=== PATIENT | female | born 1940 | race Caucasian/White ===

== ENCOUNTER 2021-09-01 10:57 | Observation (INO) | payer MEDICARE ==
[2021-09-01] MEDS ORDERED: Sodium Chloride 0.9% 1000 ML 1,000 ML IV STA ×2 (11:06→12:25)
[2021-09-01] MEDS ORDERED: Hydromorphone 1 mg/ml Injection IV ONE (11:10)
[2021-09-01] MEDS ORDERED: Zofran 4 MG/2 ML VIAL IV ONE (11:10)
[2021-09-01] MEDS ORDERED: Hydromorphone 1 mg/ml Injection ONE (11:12)
[2021-09-01] MEDS ORDERED: Zofran 4 MG/2 ML VIAL ONE (11:12)
[2021-09-01] MEDS ORDERED: Sodium Chloride 0.9% 1000 ML 1,000 ML ONE ×2 (11:12→12:29)
--- NOTE | 2021-09-01 11:21 | ERPHSYRPT ---
- History of Present Illness Time Seen by Provider: 09/01/21 11:17 Historian: patient Exam Limitations: no limitations Patient Subjective Stated Complaint: Abdominal pain Triage Nursing Assessment: Patient ambulated back to ED and transferred self to bed. Patient A+ O X3. Patient's skin pink, warm and dry. patient complains of intermittent abdominal pain 6/10 for the past two weeks. Patient also complains of diarrhea and nausea, but denies vomiting. Abdomen soft and round with BS X 4. Physician History: Patient is 81-year-old female came to the emergency room with complaining of abdominal pain for last 1 to 2 weeks associated with nausea vomiting and diarrhea. She was also running some low-grade fever with chills couple days ago. She denies any blood in her stool or urine. Patient has been feeling weak since last 2 weeks afterwards she started having a diarrhea. She is still able to eat. Patient was feeling better little bit yesterday but today again she started having more and more diarrhea. Timing/Duration: week(s) (1-2 weeks) Activities at Onset: none Quality: cramping Abdominal Pain Onset Location: generalized abdomen Pain Radiation: no radiation Severity of Pain-Max: moderate Severity of Pain-Current: moderate Modifying Factors: Improves With: nothing Associated Symptoms: diarrhea, fever/chills, loss of appetite, nausea, vomiting Previous symptoms: no prior history Allergies/Adverse Reactions: adhesive Allergy (Verified 09/01/21 11:06) azithromycin [From Zithromax Z-Michael] Allergy (Verified 09/01/21 11:06) cephalexin monohydrate [From Keflex] Allergy (Verified 09/01/21 11:06) codeine Allergy (Verified 09/01/21 11:06) peanut Allergy (Verified 09/01/21 11:06) Penicillins Allergy (Verified 09/01/21 11:06) rifampin Allergy (Verified 09/01/21 11:06) Sulfa (Sulfonamide Antibiotics) Allergy (Verified 09/01/21 11:06) tizanidine HCl [From Zanaflex] Allergy (Verified 09/01/21 11:06) Home Medications: Lovastatin 20 mg PO HS 12/06/13 [History] Metoprolol Tartrate 50 mg [Lopressor 50 MG] 100 mg PO BID 12/06/13 [History] Primidone 100 mg PO DAILY 10/21/14 [History] Dicyclomine HCl 20 mg [Bentyl 20 mg] 20 mg PO UD PRN 10/29/14 [History] Isosorbide Mononitrate 30 mg [Imdur 30 MG] 60 mg PO DAILY 05/12/16 [History] Aspirin EC 81 mg [Ecotrin 81 mg] 81 mg PO DAILY 09/01/21 [History] Dulaglutide [Trulicity] 0.75 mg SQ WEEKLY 09/01/21 [History] Glipizide 10 mg [Glucotrol 10 MG] 10 mg PO DAILY 09/01/21 [History] Olmesartan/Hydrochlorothiazide [Benicar Hct 40-25 mg Tablet] 1 tab PO DAILY 09/01/21 [History] Sitagliptin Phosphate 50 MG [Januvia 50 MG] 100 mg PO DAILY 09/01/21 [History] Hx Tetanus, Diphtheria Vaccination/Date Given: No Hx Influenza Vaccination/Date Given: Yes Hx Pneumococcal Vaccination/Date Given: Yes Immunizations Up to Date: Yes Travel Risk - International Travel Have you traveled outside of the country in past 3 weeks: No - Coronavirus Screening Are you exhibiting any of the following symptoms?: No Close contact with a COVID-19 positive Pt in past 14-21 Days: No - Vaccine Status Have you recieved a Covid-19 vaccination: Yes Continuous [employer]: [place] - Vaccination Dates Date of 2cond Vaccination (if applicable): Jul 2020 Comment: Booster Feb 2022 - Review of Systems Constitutional: No Fever, No Chills Eyes: No Symptoms Ears, Nose, & Throat: No Symptoms Respiratory: No Cough, No Dyspnea Cardiac: No Chest Pain, No Edema, No Syncope Abdominal/Gastrointestinal: Abdominal Pain, No Nausea, No Vomiting, No Diarrhea Genitourinary Symptoms: No Dysuria Musculoskeletal: No Back Pain, No Neck Pain Skin: No Rash Neurological: No Dizziness, No Focal Weakness, No Sensory Changes Psychological: No Symptoms Endocrine: No Symptoms All Other Systems: Reviewed and Negative - Past Medical History Pertinent Past Medical History: Yes Neurological History: No Pertinent History ENT History: Cataracts Cardiac History: Hypertension, Other Respiratory History: Asthma Endocrine Medical History: Adrenal Insufficiency, Diabetes Type II Musculoskeletal History: Osteoarthritis GI Medical History: Diverticulosis, Irritable Bowel History: No Pertinent History Psycho-Social History: Anxiety Female Reproductive Disorders: No Pertinent History Other Medical History: STINTS, PAST BACK INJURY WITH NON SUCCESSFUL BACK SURGERY, CRONIC SCIATICA - Past Surgical History Past Surgical History: Yes Neuro Surgical History: No Pertinent History Cardiac: No Pertinent History Respiratory: No Pertinent History Gastrointestinal: Appendectomy, Cholecystectomy Genitourinary: No Pertinent History Musculoskeletal: Orthopedic Surgery Female Surgical History: Section, Hysterectomy, Lumpectomy Other Surgical History: back surgery - Social History Smoking Status: Never smoker Exposure to second hand smoke: No (as a child/ not now) Drug Use: none Patient Lives Alone: Yes - Nursing Vital Signs Nursing Vital Signs: Initial Vital Signs Temperature 96.5 F 09/01/21 11:07 Pulse Rate 78 09/01/21 11:07 Respiratory Rate 18 09/01/21 11:07 Blood Pressure 184/77 09/01/21 11:07 O2 Sat by Pulse Oximetry 97 09/01/21 11:07 Pain Scale Pain Intensity 3 - Physical Exam General Appearance: no apparent distress, alert Eye Exam: PERRL/EOMI, eyes nml inspection Ears, Nose, Throat Exam: normal ENT inspection, pharynx normal, moist mucous membranes Neck Exam: normal inspection, non-tender, supple, full range of motion Respiratory Exam: normal breath sounds, lungs clear, No respiratory distress Cardiovascular Exam: regular rate/rhythm, normal heart sounds Gastrointestinal/Abdomen Exam: soft, No tenderness, No mass Back Exam: normal inspection, normal range of motion, No CVA tenderness, No vertebral tenderness Extremity Exam: normal inspection, normal range of motion, pelvis stable Neurologic Exam: alert, oriented x 3, cooperative, normal mood/affect, nml cerebellar function, sensation nml, No motor deficits Skin Exam: normal color, warm, dry SpO2: 97 - Course Nursing assessment & vital signs reviewed: Yes - CT Exams Abdomen/Pelvis CT Interpretation: Tele-radiologist Report (no abnormality) Ordered Tests: Active Orders 24 hr Category Date Time Status EKG-ER Only STAT Care 09/01/21 11:06 Active IV Insertion STAT Care 09/01/21 11:06 Active ABDOMEN AND PELVIS W/0 CONTRAS [CT] Stat Exams 09/01/21 12:16 Taken AMYLASE Stat Lab 09/01/21 11:35 Completed CBC W DIFF Stat Lab 09/01/21 11:35 Completed CMP Stat Lab 09/01/21 11:35 Completed CULTURE,URINE Stat Lab 09/01/21 11:15 Received LIPASE Stat Lab 09/01/21 11:35 Completed Transfer Order Routine Transfer 09/01/21 Ordered Medication Summary Discontinued Medications Generic Name Dose Route Start Last Admin Trade Name Charito PRN Reason Stop Dose Admin Hydromorphone HCl 0.5 mg 09/01/21 11:10 09/01/21 11:28 Hydromorphone 1 Mg/1ml Inj 1 Mg/Ml Syringe IV 09/01/21 11:11 0.5 mg STAT ONE Administration Hydromorphone HCl Confirm 09/01/21 11:12 Hydromorphone 1 Mg/1ml Inj 1 Mg/Ml Syringe Administered 09/01/21 11:13 Dose 1 mg .ROUTE .STK-MED ONE Sodium Chloride 1,000 mls @ 999 mls/hr 09/01/21 11:06 09/01/21 12:41 Sodium Chloride 0.9% 1000 Ml IV 09/01/21 12:06 Infused .Q1H1M STA Infusion Sodium Chloride Confirm 09/01/21 11:12 Sodium Chloride 0.9% 1000 Ml Administered 09/01/21 11:13 Dose 1,000 mls @ ud .ROUTE .STK-MED ONE Levofloxacin/Dextrose 500 mg in 100 mls @ 100 mls/hr 09/01/21 12:23 09/01/21 13:53 Levofloxacin 500mg/100ml D5w IV 09/01/21 13:22 Infused STAT STA Infusion Sodium Chloride 1,000 mls @ 999 mls/hr 09/01/21 12:25 09/01/21 13:53 Sodium Chloride 0.9% 1000 Ml IV 09/01/21 13:25 Infused .Q1H1M STA Infusion Sodium Chloride Confirm 09/01/21 12:29 Sodium Chloride 0.9% 1000 Ml Administered 09/01/21 12:30 Dose 1,000 mls @ ud .ROUTE .STK-MED ONE Levofloxacin/Dextrose Confirm 09/01/21 12:30 Levofloxacin 500mg/100ml D5w Administered 09/01/21 12:31 Dose 500 mg in 100 mls @ ud IV .STK-MED ONE Ondansetron HCl 4 mg 09/01/21 11:10 09/01/21 11:29 Ondansetron Hcl 4 Mg/2 Ml Vial IV 09/01/21 11:11 4 mg STAT ONE Administration Ondansetron HCl Confirm 09/01/21 11:12 Ondansetron Hcl 4 Mg/2 Ml Vial Administered 09/01/21 11:13 Dose 4 mg .ROUTE .STK-MED ONE Lab/Rad Data: Laboratory Result Diagrams 09/01/21 11:35 09/01/21 11:35 Laboratory Results 09/01/21 09/01/21 09/01/21 Range/Units 13:29 11:35 11:35 WBC 10.7 H (4.0-10.5) K/mm3 RBC 4.05 L (4.1-5.4) M/mm3 Hgb 13.1 (12.0-16.0) gm/dl Hct 38.7 (35-47) % MCV 95.6 (78-100) fl MCH 32.3 H (26-32) pg MCHC 33.9 (32-36) g/dl RDW 12.7 (11.5-14.0) % Plt Count 372 (150-450) K/mm3 MPV 10.1 (7.5-11.0) fl Gran % 76.0 H (36.0-66.0) % Eos # (Auto) 0.04 (0-0.5) Absolute Lymphs (auto) 1.86 (1.0-4.6) Absolute Monos (auto) 0.64 (0.0-1.3) Lymphocytes % 17.5 L (24.0-44.0) % Monocytes % 6.0 (0.0-12.0) % Eosinophils % 0.4 (0.00-5.0) % Basophils % 0.1 (0.0-0.4) % Absolute Granulocytes 8.10 H (1.4-6.9) Basophils # 0.01 (0-0.4) Sodium 129 L (137-145) mmol/L Potassium 4.1 (3.5-5.1) mmol/L Chloride 90 L (98-107) mmol/L Carbon Dioxide 25 (22-30) mmol/L Anion Gap 17.2 H (5-15) MEQ/L BUN 14 (7-17) mg/dL Creatinine 1.68 H (0.52-1.04) mg/dL Estimated GFR 31.2 ML/MIN Glucose 155 H (74-106) mg/dL Calcium 9.5 (8.4-10.2) mg/dL Total Bilirubin 0.40 (0.2-1.3) mg/dL AST 26 (14-36) U/L ALT 16 (0-35) U/L Alkaline Phosphatase 75 (38-126) U/L Serum Total Protein 7.3 (6.3-8.2) g/dL Albumin 4.4 (3.5-5.0) g/dL Amylase 124 H (30-110) U/L Lipase 764 H (23-300) U/L Urinalys Dipstick Clnc Urine Color Urine Appearance Urine pH Ur Specific Liguori Urine Protein POC Urine Protein Conf (Negative) Urine Ketones Urine Blood Urine Nitrite Urine Bilirubin Urine Urobilinogen Ur Leukocyte Esterase Urine Leukocytes (NEGATIVE) Urine WBC (Auto) (0-5) /HPF Urine RBC (Auto) (0-2) /HPF U Hyaline Cast (Auto) (0-2) /LPF U Epithel Cells (Auto) (FEW) /HPF Urine Bacteria (Auto) (NEGATIVE) /HPF Urine RBC (0-5) Alex/ul U Non-Squamous Epi Cells Urine Mucus (Auto) (NEGATIVE) /HPF Ur Culture Indicated? Urine Culture Reflexed Urine Glucose (NEGATIVE) mg/dL Influenza Type A Ag NEGATIVE (NEGATIVE) Influenza Type B Ag NEGATIVE (NEGATIVE) RSV (PCR) NEGATIVE (Negative) SARS-CoV-2 (PCR) NEGATIVE (NEGATIVE) 09/01/21 Range/Units 11:15 WBC (4.0-10.5) K/mm3 RBC (4.1-5.4) M/mm3 Hgb (12.0-16.0) gm/dl Hct (35-47) % MCV (78-100) fl MCH (26-32) pg MCHC (32-36) g/dl RDW (11.5-14.0) % Plt Count (150-450) K/mm3 MPV (7.5-11.0) fl Gran % (36.0-66.0) % Eos # (Auto) (0-0.5) Absolute Lymphs (auto) (1.0-4.6) Absolute Monos (auto) (0.0-1.3) Lymphocytes % (24.0-44.0) % Monocytes % (0.0-12.0) % Eosinophils % (0.00-5.0) % Basophils % (0.0-0.4) % Absolute Granulocytes (1.4-6.9) Basophils # (0-0.4) Sodium (137-145) mmol/L Potassium (3.5-5.1) mmol/L Chloride (98-107) mmol/L Carbon Dioxide (22-30) mmol/L Anion Gap (5-15) MEQ/L BUN (7-17) mg/dL Creatinine (0.52-1.04) mg/dL Estimated GFR ML/MIN Glucose (74-106) mg/dL Calcium (8.4-10.2) mg/dL Total Bilirubin (0.2-1.3) mg/dL AST (14-36) U/L ALT (0-35) U/L Alkaline Phosphatase (38-126) U/L Serum Total Protein (6.3-8.2) g/dL Albumin (3.5-5.0) g/dL Amylase (30-110) U/L Lipase (23-300) U/L Urinalys Dipstick Clnc MAIN LAB Urine Color Cancelled Urine Appearance Cancelled Urine pH Cancelled Ur Specific [place] Cancelled Urine Protein Cancelled POC Urine Protein Conf 30 (Negative) Urine Ketones Cancelled Urine Blood Cancelled Urine Nitrite Cancelled Urine Bilirubin Cancelled Urine Urobilinogen Cancelled Ur Leukocyte Esterase Cancelled Urine Leukocytes MODERATE (NEGATIVE) Urine WBC (Auto) 51-100 (0-5) /HPF Urine RBC (Auto) 6-10 (0-2) /HPF U Hyaline Cast (Auto) 11-25 (0-2) /LPF U Epithel Cells (Auto) RARE (FEW) /HPF Urine Bacteria (Auto) MODERATE (NEGATIVE) /HPF Urine RBC TRACE-INTACT (0-5) Alex/ul U Non-Squamous Epi Cells Cancelled Urine Mucus (Auto) SLIGHT (NEGATIVE) /HPF Ur Culture Indicated? YES Urine Culture Reflexed Cancelled Urine Glucose NEGATIVE (NEGATIVE) mg/dL Influenza Type A Ag (NEGATIVE) Influenza Type B Ag (NEGATIVE) RSV (PCR) (Negative) SARS-CoV-2 (PCR) (NEGATIVE) - Progress Progress: unchanged, pain not gone completely Discussed with : Barry Will see patient in: hospital (observation) Counseled pt/family regarding: lab results, diagnosis, need for follow-up, rad results - Departure Departure Disposition: Observation Clinical Impression: Pyelonephritis due to Escherichia coli Acute pancreatitis Qualifiers: Pancreatitis type: idiopathic Acute pancreatitis complication: unspecified Qualified Code(s): K85.00 - Idiopathic acute pancreatitis without necrosis or infection Condition: Fair Critical Care Time: Yes Critical Care Time(excluding separately billable procedures): Critical 30-74 mins Referrals: BEVERLY EAGLE [PODIATRY STAFF] - Follow up/PCP as directed
[2021-09-01 12:01] LABS: Basophil (Absolute #) 0.01 (0-0.4); Eosinophil % 0.4 % (0.00-5.0); Eosinophil (Absolute #) 0.04 (0-0.5); Hematocrit 38.7 % (35-47); Hemoglobin 13.1 gm/dl (12.0-16.0); Lymphocyte (Absolute #) 1.86 (1.0-4.6); Lymphocytes % 17.5 % (24.0-44.0); Mean Cell Volume 95.6 fl (78-100); Mean Corpuscular Hemoglobin 32.3 pg (26-32); Mean Corpuscular Hgb Concent. 33.9 g/dl (32-36); Mean Platelet Volume 10.1 fl (7.5-11.0); Monocyte (Absolute #) 0.64 (0.0-1.3); Platelet Count 372 K/mm3 (150-450); Red Blood Count 4.05 M/mm3 (4.1-5.4); Red Cell Distribution Width 12.7 % (11.5-14.0); White Blood Count 10.7 K/mm3 (4.0-10.5)
[2021-09-01 12:04] LABS: ALBUMIN 4.4 g/dL (3.5-5.0); ANION GAP 17.2 MEQ/L (5-15); BILIRUBIN,TOTAL 0.4 mg/dL (0.2-1.3); Calcium 9.5 mg/dL (8.4-10.2); Creatinine 1 1.68 mg/dL (0.52-1.04); EST GLOMERULAR FILTRATION RATE 31.2 ML/MIN; Potassium 4.1 mmol/L (3.5-5.1); Total Protein 7.3 g/dL (6.3-8.2)
[2021-09-01 12:11] LABS: Appearance SLIGHTLY CLOUDY (CLEAR); Bilirubin SMALL (NEGATIVE); Glucose NEGATIVE (NEGATIVE); Ketones NEGATIVE (NEGATIVE)
[2021-09-01 12:12] LABS: Dipstick done @ ? MAIN LAB; Nitrite NEGATIVE (NEGATIVE); Ph 5.5 (5-6); Protein,Urine Dip 30 (Negative); RBC TRACE-INTACT Ery/ul (0-5); Specific Gravity 1.025 (1.005-1.025); Urobilinogen 0.2 mg/dL (0-1)
[2021-09-01 12:13] LABS: Bacteria MODERATE /HPF (NEGATIVE); Epithelial Cells RARE /HPF (FEW); Mucus SLIGHT /HPF (NEGATIVE); WBC 51-100 /HPF (0-5)
[2021-09-01 12:14] LABS: Urine Cultured Indicated? YES
[2021-09-01] MEDS ORDERED: Levofloxacin 500MG/100ML D5W 500 MG/100 ML BAG IV STA (12:23)
[2021-09-01] MEDS ORDERED: Levofloxacin 500MG/100ML D5W 500 MG/100 ML BAG IV ONE (12:30)
[2021-09-01 14:10] LABS: INFLUENZA A NEGATIVE (NEGATIVE); INFLUENZA B NEGATIVE (NEGATIVE); RESPIRATORY SYNCTIAL VIRUS NEGATIVE (Negative); SARS-CoV-2 Xpert Express NEGATIVE (NEGATIVE)
[2021-09-01] MEDS ORDERED: BENTYL 20 MG PO PRN (16:44)
[2021-09-01] MEDS ORDERED: Nitrostat 0.4 MG Tablet SL PRN (16:44)
[2021-09-01] MEDS ORDERED: Ventolin Hfa MDI IH PRN (16:44)
[2021-09-01] MEDS ORDERED: VENTOLIN COMMON CANISTER IH PRN (16:59)
[2021-09-01] MEDS: Sodium Chloride 0.9% 1000 ML 1,000 ML IV SCH (16:59)
[2021-09-01] MEDS: Zofran 4 MG/2 ML VIAL IV PRN (19:28)
--- NOTE | 2021-09-01 20:08 | XRAY ---
Indication: Weakness, diarrhea, bloating, and nausea. Multiple contiguous axial images obtained through the abdomen and pelvis without contrast. Comparison: October 21, 2014. Lung bases again demonstrates minimal subsegmental atelectasis/scarring and tiny left base calcified granuloma. No infiltrate or effusion. Heart not enlarged. Noncontrasted stomach and bowel loops nonobstructed. Again scattered descending/sigmoid diverticulosis without diverticulitis and hysterectomy. Interval cholecystectomy. No free fluid/air. Remaining liver, pancreas, spleen, adrenal glands, kidneys, ureters, and bladder are unremarkable for noncontrast exam. There is again mild scattered aortoiliac calcifications without AAA. Osseous structures intact again with osteopenia, moderate/advanced multilevel degenerative spondylosis, and marked dextrorotoscoliosis centered at thoracolumbar junction. Progressive worsening moderate right hip degenerative arthropathy. Impression: 1. Again colonic diverticulosis, arteriosclerotic disease, and chronic bony findings. 2. Remaining CT abdomen/pelvis without contrast exam is negative. Comment: Preliminary interpretation made by [facility]. No critical discrepancy.
[2021-09-01] MEDS: Lopressor 50 MG PO SCH (21:43)
[2021-09-01] MEDS: ZOCOR 20MG PO SCH (21:44)
[2021-09-01] MEDS: Pepcid 20 MG VIAL IV SCH (21:44)
[2021-09-01] MEDS ORDERED: NON-FORMULARY ITEM (Lovastatin [Lovastatin] 10 MG Tablet) PO SCH (22:00)
[2021-09-02] MEDS: Sodium Chloride 0.9% 1000 ML 1,000 ML IV SCH ×3 (02:52→22:06)
[2021-09-02 05:07] LABS: Absolute Neutrophil Ct (ANC) 5.92 (1.4-6.9); Basophil (Absolute #) 0.02 (0-0.4); Eosinophil (Absolute #) 0.09 (0-0.5); Hematocrit 36.1 % (35-47); Hemoglobin 11.8 gm/dl (12.0-16.0); Lymphocyte (Absolute #) 2.38 (1.0-4.6); Lymphocytes % 25.9 % (24.0-44.0); Mean Cell Volume 96.8 fl (78-100); Mean Corpuscular Hemoglobin 31.6 pg (26-32); Mean Corpuscular Hgb Concent. 32.7 g/dl (32-36); Mean Platelet Volume 9.9 fl (7.5-11.0); Monocyte (Absolute #) 0.78 (0.0-1.3); Monocytes % 8.5 % (0.0-12.0); Neutrophil % 64.4 % (36.0-66.0); Platelet Count 324 K/mm3 (150-450); Red Blood Count 3.73 M/mm3 (4.1-5.4); Red Cell Distribution Width 12.8 % (11.5-14.0); White Blood Count 9.2 K/mm3 (4.0-10.5)
[2021-09-02 07:30] LABS: ALBUMIN 3.8 g/dL (3.5-5.0); ANION GAP 13.5 MEQ/L (5-15); BILIRUBIN,TOTAL 0.4 mg/dL (0.2-1.3); Calcium 8.3 mg/dL (8.4-10.2); Creatinine 1 1.38 mg/dL (0.52-1.04); EST GLOMERULAR FILTRATION RATE 39.2 ML/MIN; Potassium 3.6 mmol/L (3.5-5.1); Total Protein 6.7 g/dL (6.3-8.2)
[2021-09-02] MEDS: Glucotrol 5 MG PO SCH (08:10)
[2021-09-02 09:54] LABS: AMYLASE 97 U/L (30-110); LIPASE 168 U/L (23-300)
[2021-09-02] MEDS ORDERED: IMODIUM 2 MG PO PRN (09:58)
[2021-09-02] MEDS ORDERED: OLMESARTAN PO SCH (10:00)
[2021-09-02] MEDS ORDERED: NON-FORMULARY ITEM (Glipizide 10 Mg*** [Glucotrol 10 Mg***] 10 MG Tablet) PO SCH (10:00)
[2021-09-02] MEDS ORDERED: Levofloxacin 500MG/100ML D5W 500 MG/100 ML BAG IV SCH (10:00)
[2021-09-02] MEDS ORDERED: [UNRECOGNIZED DRUG - OTHER] PO SCH (10:00)
[2021-09-02] MEDS ORDERED: Imdur 30 MG PO SCH (10:00)
[2021-09-02] MEDS ORDERED: HYDROCHLOROTHIAZIDE PO SCH (10:00)
[2021-09-02] MEDS: TYLENOL 325 MG PO PRN ×2 (11:11→16:24)
[2021-09-02] MEDS: PROTONIX 40 MG IV IV SCH (11:14)
[2021-09-02] MEDS: Pepcid 20 MG VIAL IV SCH ×2 (11:20→21:19)
[2021-09-02] MEDS: Januvia 50 MG PO SCH (11:26)
[2021-09-02] MEDS: hydroDIURIL 25 MG PO SCH (11:28)
[2021-09-02] MEDS: APRESOLINE 20 MG/ML INJ IV PRN ×2 (11:29→21:19)
[2021-09-02] MEDS: Benicar 20 MG PO SCH (11:30)
[2021-09-02] MEDS: ECOTRIN 81 MG PO SCH (11:31)
[2021-09-02] MEDS: Lopressor 50 MG PO SCH ×2 (11:31→20:00)
[2021-09-02] MEDS: Imdur 60MG PO SCH (11:32)
[2021-09-02] MEDS: MYSOLINE 50MG PO SCH (11:34)
[2021-09-02] MEDS: Levaquin 250MG/50ML D5W 250 MG/50 ML BAG IV SCH (11:54)
[2021-09-02] MEDS: ZOCOR 20MG PO SCH (21:20)
[2021-09-02] MEDS: Hydromorphone 1 mg/ml Injection IV PRN (22:45)
[2021-09-02] MEDS: Zofran 4 MG/2 ML VIAL IV PRN (23:08)
[2021-09-03] MEDS: Zofran 4 MG/2 ML VIAL IV PRN ×3 (03:54→20:19)
[2021-09-03] MEDS: Hydromorphone 1 mg/ml Injection IV PRN (07:36)
[2021-09-03] MEDS: Sodium Chloride 0.9% 1000 ML 1,000 ML IV SCH (07:53)
[2021-09-03] MEDS ORDERED: NON-FORMULARY ITEM (Dulaglutide [Trulicity] 0.75 MG/0.5 ML Pen.Injctr) SQ SCH (08:00)
[2021-09-03] MEDS ORDERED: Phenergan 25 MG INJ*** 25 MG in Sodium Chloride 0.9% 100 ML BAG 100 ML IV PRN (08:02)
[2021-09-03] MEDS ORDERED: ULTRAM 50 MG PO PRN (08:05)
[2021-09-03] MEDS ORDERED: NACL IV SCH (08:15)
[2021-09-03] MEDS ORDERED: POTASSIUM CHLORIDE IV SCH (08:15)
[2021-09-03] MEDS ORDERED: DEXTROSE 5% IV SCH (08:15)
[2021-09-03 08:29] LABS: Absolute Neutrophil Ct (ANC) 10.72 (1.4-6.9); Basophil (Absolute #) 0.03 (0-0.4); Eosinophil (Absolute #) 0 (0-0.5); Hematocrit 39.2 % (35-47); Lymphocyte (Absolute #) 1.74 (1.0-4.6); Lymphocytes % 13.5 % (24.0-44.0); Mean Cell Volume 96.1 fl (78-100); Mean Corpuscular Hemoglobin 31.9 pg (26-32); Mean Corpuscular Hgb Concent. 33.2 g/dl (32-36); Mean Platelet Volume 9.4 fl (7.5-11.0); Monocyte (Absolute #) 0.39 (0.0-1.3); Neutrophil % 83.3 % (36.0-66.0); Platelet Count 385 K/mm3 (150-450); Red Blood Count 4.08 M/mm3 (4.1-5.4); Red Cell Distribution Width 12.9 % (11.5-14.0); White Blood Count 12.9 K/mm3 (4.0-10.5)
[2021-09-03 08:44] LABS: ALBUMIN 4.6 g/dL (3.5-5.0); ANION GAP 18.9 MEQ/L (5-15); BILIRUBIN,TOTAL 0.4 mg/dL (0.2-1.3); Calcium 8.6 mg/dL (8.4-10.2); Creatinine 1 1.19 mg/dL (0.52-1.04); EST GLOMERULAR FILTRATION RATE 46.5 ML/MIN; Potassium 3.5 mmol/L (3.5-5.1); Total Protein 7.8 g/dL (6.3-8.2)
[2021-09-03] MEDS: D5W/0.45NS W/ 20mEq KCl 1000 ML 1,000 ML IV SCH ×2 (09:10→22:40)
--- NOTE | 2021-09-03 09:42 | HP ---
CHIEF COMPLAINT: Abdominal pain, nausea, vomiting and diarrhea. HISTORY OF PRESENT ILLNESS: The patient is a 81-year-old white female who had recently been placed on Trulicity after which the patient began having problems with abdominal discomfort. The patient was seen in the emergency room and diagnosed with recurrent pancreatitis and urinary tract infection. PAST MEDICAL/SURGICAL HISTORY: Diabetes mellitus type II, asthma, hypertension, osteoarthritis. She has also had a problem with history of pancreatitis and had gallbladder removed. HOME MEDICATIONS: Includes Albuterol on PRN basis, enteric coated aspirin 81 mg a day, dicyclomine 20 mg four times a day PRN. She had been started on Trulicity 0.75 mg weekly and her last dose was on Friday. She takes vitamin D 50,000 units once a week, Glucotrol 10 mg daily, isosorbide 60 mg daily, lovastatin 20 mg daily, metoprolol 50 mg two tablets twice a day, nitroglycerin PRN. She is on olmesartan/hydrochlorothiazide 40 - 12.5 daily. ALLERGIES: PENICILLIN. ZITHROMAX. CODEINE. RIFAMPIN. SULFA. ZANAFLEX. KEFLEX. PEANUTS. ADHESIVE TAPE. PHYSICAL EXAMINATION: The patient was seen in the emergency room. Her vital signs had been stable. Blood pressure did actually get up to 184/77. Her temperature was 96.5F. Her pulse rate was 86, respiratory rate 12. HEENT: Normocephalic, atraumatic. Pupils equal round reactive to light. Extraocular movements intact. Oropharynx is pink and moist. NECK: Supple without lymphadenopathy, thyromegaly or JVD. CHEST: Clear to auscultation. HEART: Regular rate and rhythm without murmurs, rubs or gallops. ABDOMEN: Tender epigastric. No masses were felt. EXTREMITIES: Without cyanosis, clubbing or edema. NEUROLOGIC: The patient is alert and oriented x3. LAB DATA AND TESTS: The patient had a CT scan showing colonic diverticulosis. No diverticulitis mentioned. No mention of nephritis. The examination without contrast was otherwise completely normal. Her CBC was normal. Slight decrease his hemoglobin at 11.8. Her amylase and lipase were initially somewhat elevated. Her sodium was slightly low at 129 and now up to 136 after fluids. Her creatinine slightly high at 1.38. ASSESSMENT: The patient had been started on a regular diet. We will change that to low fat diet. She is on IV fluids and instructed to drink mostly clear liquids but she may take some food if she feels up to it. We will recheck her amylase and lipase this morning. She has also been placed on Levaquin for what appears to be urinary tract infection with 51-100 white blood cells per high power field with culture pending.
[2021-09-03] MEDS: Levaquin 250MG/50ML D5W 250 MG/50 ML BAG IV SCH (10:14)
[2021-09-03] MEDS: PROTONIX 40 MG IV IV SCH (10:14)
[2021-09-03] MEDS: Pepcid 20 MG VIAL IV SCH ×2 (10:46→21:25)
[2021-09-03] MEDS: ECOTRIN 81 MG PO SCH (12:17)
[2021-09-03] MEDS: MYSOLINE 50MG PO SCH (12:17)
[2021-09-03] MEDS: Imdur 60MG PO SCH (12:17)
[2021-09-03] MEDS: Benicar 20 MG PO SCH (12:17)
[2021-09-03] MEDS: Januvia 50 MG PO SCH (12:17)
[2021-09-03] MEDS: hydroDIURIL 25 MG PO SCH (12:18)
[2021-09-03] MEDS: Glucotrol 5 MG PO SCH (12:18)
[2021-09-03] MEDS: Lopressor 50 MG PO SCH ×2 (12:19→21:25)
[2021-09-03] MEDS: TYLENOL 325 MG PO PRN (20:19)
[2021-09-03] MEDS: ZOCOR 20MG PO SCH (21:25)
[2021-09-04 04:39] LABS: Absolute Neutrophil Ct (ANC) 6.43 (1.4-6.9); Basophil (Absolute #) 0.03 (0-0.4); Eosinophil % 0.8 % (0.00-5.0); Eosinophil (Absolute #) 0.09 (0-0.5); Hematocrit 32.9 % (35-47); Hemoglobin 10.9 gm/dl (12.0-16.0); Lymphocytes % 30.2 % (24.0-44.0); Mean Cell Volume 96.5 fl (78-100); Mean Corpuscular Hgb Concent. 33.1 g/dl (32-36); Mean Platelet Volume 9.2 fl (7.5-11.0); Monocyte (Absolute #) 1.08 (0.0-1.3); Monocytes % 9.9 % (0.0-12.0); Neutrophil % 58.8 % (36.0-66.0); Platelet Count 301 K/mm3 (150-450); Red Blood Count 3.41 M/mm3 (4.1-5.4); Red Cell Distribution Width 12.9 % (11.5-14.0); White Blood Count 10.9 K/mm3 (4.0-10.5)
[2021-09-04 04:54] VITALS: O2SAT 98
[2021-09-04 05:17] LABS: ALBUMIN 3.5 g/dL (3.5-5.0); ANION GAP 10.3 MEQ/L (5-15); BILIRUBIN,TOTAL 0.3 mg/dL (0.2-1.3); Calcium 7.9 mg/dL (8.4-10.2); Creatinine 1 1.43 mg/dL (0.52-1.04); EST GLOMERULAR FILTRATION RATE 37.6 ML/MIN; Potassium 3.4 mmol/L (3.5-5.1); Total Protein 6.2 g/dL (6.3-8.2)
[2021-09-04] MEDS ORDERED: POTASSIUM CHLORIDE 20 mEq IN WATER 100ML 20 MEQ/100 ML BAG IV SCH (06:00)
[2021-09-04 07:23] VITALS: BP 166/71; PULSE 63
[2021-09-04] MEDS: Glucotrol 5 MG PO SCH (07:59)
[2021-09-04] MEDS: PROTONIX 40 MG IV IV SCH (08:51)
[2021-09-04] MEDS: Pepcid 20 MG VIAL IV SCH (08:59)
[2021-09-04] MEDS: Benicar 20 MG PO SCH (09:07)
[2021-09-04] MEDS: MYSOLINE 50MG PO SCH (09:09)
[2021-09-04] MEDS: Imdur 60MG PO SCH (09:10)
[2021-09-04] MEDS: hydroDIURIL 25 MG PO SCH (09:11)
[2021-09-04] MEDS: Lopressor 50 MG PO SCH (09:12)
[2021-09-04] MEDS: ECOTRIN 81 MG PO SCH (09:12)
[2021-09-04] MEDS: Januvia 50 MG PO SCH (09:14)
[2021-09-04] MEDS ORDERED: VITAMIN D2 PO SCH (10:00)
--- NOTE | 2021-09-05 07:56 | DS ---
DISCHARGE DIAGNOSES: 1) ACUTE PANCREATITIS. 2) DIABETES MELLITUS TYPE II. 3) URINARY TRACT INFECTION. HISTORY: The patient is a 81-year-old white female who presented having had two weeks of vomiting and diarrhea. She reported that it had just gotten worse over the past few days and presented to the emergency room. HOSPITAL COURSE: The patient was admitted to the medicine [facility]. She was treated with IV fluids and gut rest. She did have a few loose stools. The patient had noted that she had taken Trulicity started approximately a couple of months ago and we felt that it was likely the Trulicity was causing her trouble. The further we got away from her last dose of medication the better she got. The patient was taking Dilaudid for pain medicine initially but this was discontinued. She was followed with her blood sugars on a sliding scale while she was here. She was also treated with Levaquin initially for what was thought to be urinary tract infection with 51 - 100 white blood cells per high power field but the urine culture turned out to be negative. The patient's discharge labs showed a glucose of 129 fasting, BUN 8, creatinine 1.43, sodium 127, potassium 3.4. Her liver enzymes were normal. Amylase and lipase were also normal. The patient's white count on discharge was 10.9, hemoglobin 10.9 and PLT count of 301,000. The patient did have x-ray evaluations during her stay which showed colonic diverticulosis, atherosclerotic disease, chronic bony findings and remaining examination was felt to be negative. The patient is now ready for discharge home. She will follow up in the office in one week. She will not require continued Levaquin due to the fact that the urine culture came back negative. The patient was instructed on low fat diet and to no longer take the Trulicity. She will be followed up in the office in one week.
== END 2021-09-04 10:55 | disposition home or self-care (01) ==
LOC: ED 10:57 → MED SURG 15:23
PROVIDERS: ADMIT Family Medicine; ATTEND Family Medicine
DX: K85.90 Acute pancreatitis without necrosis or infection, unspecified (principal); E11.9 Type 2 diabetes mellitus without complications; N39.0 Urinary tract infection, site not specified; I10 Essential (primary) hypertension; K57.30 Diverticulosis of large intestine without perforation or abscess without bleeding; Z79.899 Other long term (current) drug therapy; Z20.828 Contact with and (suspected) exposure to other viral communicable diseases
CPT/HCPCS: 0241U; 36000; 36415; 74176; 80053; 81015; 82150; 82947; 83690; 85025; 87086; 93005; 93268; 94760; 96360; 96365; 96374; 96375; 99284; 99291; G0378; J0360; J1170; J1956; J2405; J2550; A9270-GY